=== PATIENT | female | born 1965 | race Caucasian/White ===

== ENCOUNTER → 2017-10-19 | Outpatient (CLI) | payer BC ==
[~2017-10-19] MED LIST: AMBIEN 10MG10 MG PO; B-12 500 MCG PO; COMPAZINE 110 MG/TAB PO; CRESTOR40 MG PO; DOVONEX CR60 G2 TP; DUO-KAPS1 CAP PO; FLAGYL500 MG PO; FORTAMET1000 MG PO; GLUCOPHAGE1000 MG PO; KLOR-CON M2020 MEQ PO; LASIX 20MG TABL20 MG PO; LEVAQUIN 5500 MG/TA1 PO; LEVAQUIN 750MG750 M1 PO; LEVEMIR FLEX100 U/ML SQ; MOBIC15 MG PO; NIFEREX-15150 MG/CAP PO; NORCO 325 MG-7.1 TAB PO; PERCOCET 325 MG1 TA2 PO; PHENERGAN 25 TA25 MG PO; PREDNISONE20 MG PO; PROTONIX 40MG T40 MG PO; PROZAC 20MG20 MG PO; TOPROL XL 25MG25 MG PO; XANAX0.5 MG PO; ZYLOPRIM 300MG300 MG PO
== END ==
LOC: MC.RAD 11:14
DX: Z12.31 Encounter for screening mammogram for malignant neoplasm of breast (principal)

== ENCOUNTER 2018-09-13 07:18 | Day surgery (SDC) | payer MEDICARE ==
[~2018-09-13] VITALS: Ht 157.5 cm; Wt 76.1 kg
[2018-09-13] MEDS ORDERED: XIGDUO5/1000 PO (07:33)
[2018-09-13] MEDS ORDERED: PROZAC 20MG20 MG PO (07:34)
[2018-09-13] MEDS ORDERED: RASUVO30 MG/0.6 SQ (07:34)
[2018-09-13] MEDS ORDERED: NORCO 325 MG-7.1 TAB PO (07:35)
[2018-09-13 08:02] VITALS: BP 111/77; PULSE 85; TEMP 97.2
[2018-09-13 10:00] VITALS: BP 115/69; PULSE 88; TEMP 97.9
--- NOTE | 2018-09-13 10:00 | NUR ---
Patient recieved from OR. Alert and oriented. Ambulated from cart to recliner. Denies any pain or nausea. at bedside. Requesting coffee and muffin. Call joyce within reach will continue to monitor.
[2018-09-13 10:15] VITALS: BP 112/94; PULSE 91; TEMP 96.9
[2018-09-13 10:30] VITALS: BP 105/61; PULSE 91; TEMP 97
--- NOTE | 2018-09-13 10:50 | NUR ---
Discharge instructions reviewed with patient. All questions answered. Verbalized understanding. Patient brought down to lobby via wheel chair. to drive patient home.
== END 2018-09-13 10:55 | disposition home or self-care (01) ==
LOC: SDCO 07:18
DX: K57.30 Diverticulosis of large intestine without perforation or abscess without bleeding (principal); K63.89 Other specified diseases of intestine; F17.210 Nicotine dependence, cigarettes, uncomplicated; E78.00 Pure hypercholesterolemia, unspecified; E11.9 Type 2 diabetes mellitus without complications; N39.41 Urge incontinence; Z79.4 Long term (current) use of insulin; Z92.21 Personal history of antineoplastic chemotherapy; Z85.72 Personal history of non-Hodgkin lymphomas
CPT/HCPCS: J2250; J3010; J7030

== ENCOUNTER → 2020-04-16 | Outpatient (CLI) | payer MEDICARE ==
[~2020-04-16] MED LIST changes: +RASUVO30 MG/0.6 SQ; +XIGDUO5/1000 PO
== END ==
LOC: MC.RAD 07:55
DX: Z12.31 Encounter for screening mammogram for malignant neoplasm of breast (principal)

== ENCOUNTER → 2020-09-09 | Outpatient (CLI) | payer MEDICARE ==
[~2020-09-09] VITALS: Ht 157.5 cm; Wt 78.3 kg
[~2020-09-09] MED LIST changes: +FLEXERIL 1010 MG/TAB PO; +FOLIC ACID 11 MG/TA1 PO; +VALIUM 5MG T5 MG/TAB PO
[2020-09-09 12:58] VITALS: BP 111/76; PULSE 107
[2020-09-09 14:00] VITALS: BP 142/81; PULSE 93
== END ==
LOC: COL.RAD 13:00
DX: M50.30 Other cervical disc degeneration, unspecified cervical region (principal); M48.02 Spinal stenosis, cervical region
CPT/HCPCS: J1100

== ENCOUNTER → 2020-09-25 | Outpatient (CLI) | payer MEDICARE ==
[~2020-09-25] VITALS: Ht 157.5 cm; Wt 78.1 kg
[2020-09-25 13:35] VITALS: BP 107/76; PULSE 96
[2020-09-25 15:43] VITALS: BP 127/79; PULSE 87
== END ==
LOC: COL.RAD 12:57
DX: M48.02 Spinal stenosis, cervical region (principal); M54.12 Radiculopathy, cervical region
CPT/HCPCS: J1100

== ENCOUNTER → 2021-03-13 | Outpatient (CLI) | payer MEDICARE ==
[~2021-03-13] VITALS: Ht 157.5 cm; Wt 75.3 kg
[~2021-03-13] MED LIST changes: +TREXALL15 MG PO
[2021-03-13 07:21] VITALS: BP 125/82; PULSE 88; TEMP 98.3
[2021-03-13 08:15] VITALS: BP 122/72; PULSE 92
== END ==
LOC: COL.RAD 06:55
DX: M50.30 Other cervical disc degeneration, unspecified cervical region (principal); M50.90 Cervical disc disorder, unspecified, unspecified cervical region
CPT/HCPCS: J1100

== ENCOUNTER → 2021-06-20 | Outpatient (CLI) | payer MEDICARE ==
[~2021-06-20] VITALS: Ht 157.5 cm; Wt 75.2 kg
[2021-06-20 06:57] VITALS: BP 129/77; PULSE 80; TEMP 97.9
[2021-06-20 07:52] VITALS: BP 119/82; PULSE 77
== END ==
LOC: COL.RAD 06:19
DX: M50.90 Cervical disc disorder, unspecified, unspecified cervical region (principal)
CPT/HCPCS: J1100

== ENCOUNTER → 2022-03-17 | Outpatient (CLI) | payer MEDICARE | LOC: COL.RAD 07:19 | DX: R10.9 Unspecified abdominal pain (principal) | CPT/HCPCS: Q9967 ==

== ENCOUNTER → 2022-05-04 | Outpatient (CLI) | payer MEDICARE | LOC: COL.RAD 13:16 | DX: F17.210 Nicotine dependence, cigarettes, uncomplicated (principal) ==

== ENCOUNTER → 2023-05-06 | Outpatient (CLI) | payer MEDICARE | LOC: CANPRECLI → COL.RAD 13:30 | DX: Z12.2 Encounter for screening for malignant neoplasm of respiratory organs (principal); Z87.891 Personal history of nicotine dependence ==

== ENCOUNTER → 2023-09-07 | Outpatient (CLI) | payer MEDICARE | LOC: MC.RAD 08-03 11:30 | DX: Z12.31 Encounter for screening mammogram for malignant neoplasm of breast (principal) ==

== ENCOUNTER → 2024-05-08 | Outpatient (CLI) | payer MEDICARE | LOC: COL.RAD 12:33 | DX: Z12.2 Encounter for screening for malignant neoplasm of respiratory organs (principal); F17.210 Nicotine dependence, cigarettes, uncomplicated ==